=== PATIENT | male | born 1990 | race Caucasian/White ===

== ENCOUNTER 2021-05-21 09:34 | Outpatient (REF) | payer BC, SELFPAY ==
[2021-05-21 10:07] LABS: COVID-19 Test Positive (Negative)
== END 2021-05-21 09:35 | disposition home or self-care (01) ==
LOC: HO.LAB 09:34
PROVIDERS: Visit Provider Internal Medicine
DX: Z20.822 Contact with and (suspected) exposure to COVID-19 (principal)
CPT/HCPCS: 87635; C9803

== ENCOUNTER 2024-12-30 15:16 | Outpatient (AMB) | payer BC, SELFPAY ==
--- NOTE | 2024-12-30 15:33 | MHC.PC.OV ---
Vital Signs 12/30/24 15:42 Height 5 ft 8.31 in Weight 218 lb 2 oz BMI 32.9 BP 119/69 Blood Pressure Location Rt femoral Position Sitting Respiration 16 Pulse 91 Pulse Source Pulse Oximeter Temp 98.4 F Temp Source Temporal Artery Scan Pulse Oximetry (%) 96 Oxygen Delivery Method Room Air Intake Visit Reasons: olivia holden/[employer] Required: No Accompanied by: Self / Same As Patient Allergies No Known Allergies Allergy (Verified 12/30/24 16:03) Medication List - Last Reconciled 12/30/24 by Anupama Pagan PA-C No Known Home Meds Tobacco use date assessed: 12/30/24 Dental Screening Dental Screen Date: 12/30/24 Did you have a dental visit in the last 12 months?: Yes Did you have a dental problem in the last 6 months where you did not have access to dental care?: No Was dental information given to patient?: Patient has dentist HPI olivia holden/Jagdeep HPI Details The patient is a 34-year-old male presenting for a annual physical exam and new patient appointment to establish care. He has not had an annual physical examination this year and typically relies on a Department of Transportation (DOT) physical every other year. He is not currently on any medications and reports being in good health. The patient has no known family history of colon or breast cancer and denies any symptoms such as black or bloody stools, unintentional weight loss, or weight gain. He reports normal urination and bowel movements, with no chest pain or dyspnea on exertion. The patient has two children and his works for [employer]. Social History - Family: with two children - Employment: works for [employer] [facility] Medical History (Updated 12/30/24 @ 16:08 by Anupama Pagan PA-C) Preventative health care Annual physical exam Family History Father No problems noted. Mother No problems noted. Social History Housing: House Alcohol intake: current Alcohol intake frequency: a few times a week Patient Tobacco Use Status: Never used Tobacco service: No Current occupational status: employed Cognitive needs: No Hearing needs: No Vision needs: No Questionnaire PHQ-9 Over the last 2 weeks, how often have you been bothered by any of the following problems? 1. Little interest or pleasure in doing things: not at all 2. Feeling down, depressed, or hopeless: not at all 3. Trouble falling or staying asleep, or sleeping too much: not at all 4. Feeling tired or having little energy: not at all 5. Poor appetite or overeating: not at all 6. Feeling bad about yourself - or that you are a failure or have let yourself or your family down: not at all 7. Trouble concentrating on things, such as reading the newspaper or watching television: not at all 8. Moving or speaking so slowly that other people could have noticed. Or the opposite - being so fidgety or restless that you have been moving around a lot more than usual: not at all 9. Thoughts that you would be better off or of hurting yourself in some way: not at all Total score: 0 Depression Screening Interpretation: Negative Depression Screening Done: Yes 90420 - PHQ-9 Billing: Yes Source: Developed by Drs. Tani Silva, Lillie Giraldo, Jose Guadalupe Martin and colleagues, with an educational juliette from [employer]. Thrive Questionnaire Date Thrive assessed: 12/30/24 I am a: Patient What is your living situation today?: I have a steady place to live Within the past 12 months, did the food you bought not last and you didn't have the money to get more?: Never true Within the past 12 months, did you worry whether your food would run out before you got money to buy more?: Never true Do you have trouble paying for medicines?: No Do you have trouble getting transportation to medical appointments?: No Do you have trouble paying your heating and electricity bill?: No Do you have trouble taking care of your child, family member or friend?: No Do you have trouble with day-to-day activities such as bathing, preparing meals, shopping, managing finances, etc.?: No Are you currently unemployed and looking for a job?: No Are you interested in more education?: No Please select the resources that you would like help with: None Currently or been in a relationship where the following occur: No concerns reported THRIVE Score: 0 AUDIT C Alcohol Use Questionnaire (AUDIT-C) 1. How often do you have a drink containing alcohol?: 2-3 times a week 2. How many drinks containing alcohol do you have on a typical day when you are drinking?: 1 or 2 3. How often do you have six or more drinks on one occasion?: Never Total Score: 3 Score Reviewed/Action Taken: No SAMMY-7 AMB Questionnaire SAMMY-7 Date SAMMY - 7 assessed: 12/30/24 Feeling nervous, anxious, or on edge: 0 = Not at all Not being able to stop or control worryin = Not at all Worrying too much about different things: 0 = Not at all Trouble relaxin = Not at all Being so restless that it is hard to sit still: 0 = Not at all Becoming easily annoyed or irritable: 0 = Not at all Feeling afraid as if something awful might happen: 0 = Not at all Total SAMMY-7 score (0-4 normal; 5-9 mild; 10-14 moderate; 15-21 severe): 0 Source: Developed by Drs. Tani Silva, Lillie Giraldo, Jose Guadalupe Martin and colleagues, with an educational juliette from [employer]. SAMMY-7 Assessment Billing SAMMY-7 Assessment Tool: SAMMY-7 Assessment 53730 Review of Systems Const Details: - Gastrointestinal: Denies black or bloody stools, unintentional weight loss, or weight gain - Genitourinary: Reports normal urination - Cardiovascular: Denies chest pain or dyspnea on exertion All systems reviewed & are unremarkable except as noted in HPI and below Physical exam (Primary Care) Vital Signs: Last Vital Signs Temp 98.4 F 12/30/24 15:42 Pulse 91 12/30/24 15:42 Resp 16 12/30/24 15:42 BP 119/69 12/30/24 15:42 Pulse Ox 96 12/30/24 15:42 Oxygen Delivery Method Room Air 12/30/24 15:42 Care Plan Goal for BP management: <140/90 at Goal BMI result Body Mass Index 32.9 BMI Assessment/Plan discussion: High BMI High, discussed plan: lifestyle, weight reduction, dietary, physical activity, alcohol moderation and other Tobacco/Smoking Status: Tobacco use Status Tobacco use date assessed 12/30/24 12/30/24 15:38 Patient Tobacco Use Status Never used Tobacco 12/30/24 15:42 PHQ-9: PHQ-9 Score PHQ-9: Total score 0 12/30/24 15:38 Depression Screening Interpretation: Negative Thrive Assessment: Date of Thrive Assessment Date Thrive assessed 12/30/24 12/30/24 15:38 Currently or been in a relationship where the following occur: No concerns reported Const Other: Appearance: Alert. Oriented X3. No acute distress. Head: Normal external exam. Normocephalic. Atraumatic. Eyes: Pupils are equal, round, and reactive to light. Extraocular movements intact. Conjunctiva and sclera normal. Eyelids normal. Ears: External auditory canal normal. Tympanic membranes normal. Throat: Pharynx normal. Uvula midline. Moist mucous membranes. Neck: Normal inspection. Neck supple. Full range of motion. Cardiovascular: Normal heart rate and rhythm. Heart sound normal. No murmurs noted. Pulses normal throughout. Respiratory: No respiratory distress. Painless inspiration. Breath sounds normal. No wheezes/rales/rhonchi noted. No accessory muscle usage noted or decreased air movement noted. Abdomen: Soft and nontender. No distention noted. No organomegaly noted. Back: No costovertebral angle tenderness. Full range of motion noted. Skin: Skin warm and dry. Normal skin color. Normal skin turgor. No rashes/lesions/lacerations noted. Extremities: No lower extremity edema. Extremities exhibit normal range of motion. Neuro: Oriented X 3. No motor deficit. No sensory deficit. Reflexes normal. Coding Level of Care Code New Pt Level 4 (71532) New Pt Prev Care 18-39yr(90203 Diagnoses Annual physical exam Z00. Preventative health care Z. Additional Codes PHQ-9 - 45330 - PHQ-9 Billing: Yes ([id number]) SAMMY-7 Assessment Billing - SAMMY-7 Assessment Tool: SAMMY-7 Assessment 68023 ([id number]) Assessment & Plan Assessment & Plan (1) Annual physical exam: Code(s): Z00. - Encounter for general adult medical examination without abnormal findings Category: Medical (2) Preventative health care: Code(s): Z. - Encounter for general adult medical examination without abnormal findings Category: Medical Plan: The patient will undergo a comprehensive physical examination including CBC, CMP, lipid panel, liver panel, magnesium, vitamin B12, vitamin D, thyroid, and PSA screening. Colon cancer screening will be considered starting at age 40-45, and the patient was advised on breast cancer awareness for men. The patient was instructed to undergo fasting before the blood tests and to follow up with results. Plan Plan Patient was informed and verbally consented to the use of an ambient scribe for clinic note documentation during this visit. 1. Preventative Care The patient will undergo a comprehensive physical examination including CBC, CMP, lipid panel, liver panel, magnesium, vitamin B12, vitamin D, thyroid, and PSA screening. Colon cancer screening will be considered starting at age 40-45, and the patient was advised on breast cancer awareness for men. The patient was instructed to undergo fasting before the blood tests and to follow up with results. During the visit, I discussed with the patient the importance of regular physical examinations and preventative screenings, including blood tests for various health markers such as CBC, CMP, and PSA. We also talked about the appropriate age to begin colon cancer screening and the importance of breast cancer awareness for men. I advised the patient to fast before the blood tests and explained that no appointment is necessary for the lab work. Orders: Orders C Reactive Protein Today Z00.00 - Encounter for general adult medical examination without abnormal findings Complete Blood Count Auto Diff Today Z00.00 - Encounter for general adult medical examination without abnormal findings Liver Panel Today Z00.00 - Encounter for general adult medical examination without abnormal findings Vitamin B12 and Folate Today Z00.00 - Encounter for general adult medical examination without abnormal findings Comprehensive [place]. Panel Fast Today Z00.00 - Encounter for general adult medical examination without abnormal findings Hemoglobin A1c Today Z00.00 - Encounter for general adult medical examination without abnormal findings Lipid Panel Today Z00.00 - Encounter for general adult medical examination without abnormal findings Magnesium Today Z00.00 - Encounter for general adult medical examination without abnormal findings Vitamin D 25-OH Total Today Z00.00 - Encounter for general adult medical examination without abnormal findings TSH reflex Free T4 Today Z00.00 - Encounter for general adult medical examination without abnormal findings PSA,Total (Free>4and<10) Today Z00.00 - Encounter for general adult medical examination without abnormal findings Patient Instructions: - Undergo fasting before blood tests for accurate results. - Follow up with the clinic once blood test results are available. - Be aware of the signs of breast cancer and perform regular self-examinations.
[2024-12-30 15:42] VITALS: BP 119/69; PULSE 91; RESP 16; TEMP 36.9; O2SAT 96; BMI 32.9
== END 2024-12-30 15:57 | disposition home or self-care (01) ==
LOC: HO.HMCSH 15:16
PROVIDERS: PCP Internal Medicine; Visit Provider Physician Assistant Medical
DX: Z00.00 Encounter for general adult medical examination without abnormal findings (principal)

== ENCOUNTER → 2024-12-30 15:16 | Outpatient (BNVA) | payer BC, SELFPAY | PROVIDERS: PCP Internal Medicine; Visit Provider Physician Assistant Medical | DX: Z00.00 Encounter for general adult medical examination without abnormal findings (principal) | CPT/HCPCS: 96127 ==